=== PATIENT | female | born 1990 ===

== ENCOUNTER 2020-10-05 02:33 | Inpatient (IN) | payer OTHER ==
[2020-10-05] MEDS ORDERED: LIDOCAINE (2%) 20 MG/1 ML VIAL 20 ML MDV INFILTRATI ONE ×2 (03:30→06:37)
[2020-10-05] MEDS ORDERED: LACTATED RINGERS 1,000 ML IV SCH ×2 (03:30→05:45)
[2020-10-05] MEDS ORDERED: MINERAL OIL 30 ML ORAL LIQD PO PRN (03:30)
[2020-10-05] MEDS ORDERED: ePHEDrine SULFATE 50 MG/1 ML INJ IV PRN (03:30)
[2020-10-05] MEDS ORDERED: TERBUTALINE 1 MG/1 ML INJ SUB-Q PRN (03:30)
--- NOTE | 2020-10-05 03:41 | History and Physical Report ---
History of Present Illness Date of examination: 10/05/20 Date of admission: 10/05/2020 Chief complaint: Contractions, leaking of fluid History of present illness: 30 year old presents to L&D with complaint of leaking of fluid from vagina and contractions. Patient states she receives care at [facility] but no records are available. Patient denies complications during the . She states her EDC is 10/10/2020. labs drawn upon arrival and US for EDC/EGA and location of placenta ordered. GBS prophylaxis started (Vancomycin). 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 denies: smoking, alcohol abuse, prescription drug abuse, IV drug use - Obstetrical History Expected Date of Delivery: 10/10/20 Actual Gestation: 39 Week(s) 2 Day(s) : 2 Para: 1 Hx # Term Pregnancies: 1 Number of Pregnancies: 0 Spontaneous Abortions: 0 Induced : 0 Number of Living Children: 1 Medications and Allergies Allergies Allergy/AdvReac Type Severity Reaction Status Date / Time amoxicillin Allergy Swelling Verified 10/05/20 03:40 Penicillins Allergy Swelling Verified 10/05/20 03:40 Home Medications Medication Instructions Recorded Confirmed Last Taken Type No Known Home Medications [No 10/05/20 10/05/20 Unknown History Reported Home Medications] Active Meds: Active Medications Ephedrine Sulfate (Ephedrine Sulfate 50 Mg/1 Ml Inj) 10 mg IV Q2M PRN PRN Reason: Hypotension Fentanyl (Fentanyl 100 Mcg/2 Ml Inj) 100 mcg IV Q2H PRN PRN Reason: Pain,Severe (7-10) LABOR PAIN Lactated Ringer's (Lactated Ringers) 1,000 mls @ 125 mls/hr IV DIRECT HADLEY Oxytocin/Sodium Chloride (Pitocin/Ns 30 Unit/500ml) 30 units in 500 mls @ 40 mls/hr IV TITR HADLEY; Protocol Vancomycin HCl (Vancomycin/Ns 1 Gm/250 Ml) 1 gm in 250 mls @ 167.007 mls/hr IV Q12H HADLEY; Protocol Lidocaine (Lidocaine (2%) 20 Mg/1 Ml Vial 20 Ml Mdv) 20 ml INFILTRATI ONCE ONE Stop: 10/05/20 03:31 Mineral Oil (Mineral Oil 30 Ml Oral Liqd) 30 ml PO QHS PRN PRN Reason: Constipation Terbutaline Sulfate (Terbutaline 1 Mg/1 Ml Inj) 0.25 mg SUB-Q ONCE PRN PRN Reason: Hyperstimulation/Hypertonicity Review of Systems All systems: negative (contractions, leaking of water) - Vital Signs Vital signs: Vital Signs Pulse BP 69 104/66 10/05/20 02:56 10/05/20 02:56 Temp Pulse Resp BP Pulse Ox 79 104/66 98 10/05/20 03:34 10/05/20 02:56 10/05/20 03:34 - Physical Exam Abdomen: Positive: normal appearance, soft. Negative: distention, tenderness, guarding, rigidity Genitourinary (Female): Positive: normal external genitalia, normal perenium. Negative: perineal/vulvar lesions Vagina: Positive: other (clear fluid) Uterus: Positive: enlarged. Negative: tender Anus/Rectum: Positive: normal perianal skin Extremities: Positive: normal. Negative: tenderness, edema - Obstetrical FHR: category 1 Uterine Contraction Monitor Mode: External Cervical Dilatation: 5 Cervical Effacement Percentage: 90 station: -1 Uterine Contraction Pattern: Regular Uterine Contraction Intensity: Moderate Results All other labs normal. Assessment and Plan A: at 39 weeks, 2 days gestation. SROM. Active labor. GBS unknown. No records available. P: Admit. EFM. GBS prophylaxis. labs, US ordered. Request records.
[2020-10-05] MEDS ORDERED: OXYTOCIN DRIP 30 UNITS/500 ML BAG IV SCH (04:00)
[2020-10-05] MEDS ORDERED: VANCOMYCIN/NS 1 GM/250 ML 1 GM/250 ML BAG IV SCH (04:00)
[2020-10-05 04:52] LABS: Hematocrit 33.4 % (30.3-42.9); Hemoglobin 11.5 gm/dl (10.1-14.3); Mean Corpuscular HGB Conc 35 % (30-34); Mean Corpuscular Volume 88 fl (79-97); Red Blood Count 3.82 M/mm3 (3.65-5.03); Red Cell Distribution Width 13.2 % (13.2-15.2)
[2020-10-05 04:55] LABS: Platelet Count 263 K/mm3 (140-440)
[2020-10-05 05:27] LABS: Hepatitis C Virus Antibody Non-Reactive (NonReactive)
[2020-10-05] MEDS ORDERED: METOCLOPRAMIDE 10 MG/2 ML INJ IV ONE (05:38)
[2020-10-05] MEDS ORDERED: FAMOTIDINE 20 MG/2 ML INJ IV ONE (05:38)
[2020-10-05] MEDS ORDERED: BICITRA ORAL LIQD 30ML PO ONE (05:38)
[2020-10-05] MEDS: fentaNYL 100 MCG/2 ML INJ IV PRN ×2 (05:38→07:28)
--- NOTE | 2020-10-05 05:38 | Event Note ---
Date: 10/05/20 US performed: US tech states placenta previa present. Also states EGA is 35 weeks, 4 days by US (EFW 5 lb, [address] Wooten and informed her of ultrasound results. C/S orders put in. Spoke with patient via paraprofessional interpreter and informed her of placenta previa noted on US and MD recommendation for section.
[2020-10-05] MEDS ORDERED: BETAMET ACET/BETAMET NA PH 6 MG/ML INJ 5 ML MDV IM ONE (05:43)
[2020-10-05] MEDS ORDERED: GENTAMICIN/NS 100 MG/100 ML 100 MG/100 ML BAG IV ONE (05:47)
[2020-10-05 05:54] LABS: Alanine Aminotransferase 22 units/L (7-56); Albumin 3.4 g/dL (3.9-5); Blood Urea Nitrogen 14 mg/dL (7-17); Hemolysis Index 295
[2020-10-05 05:56] LABS: BUN/Creatinine Ratio 23
--- NOTE | 2020-10-05 06:02 | Anesthesia Day of Surgery ---
Anesthesia Day of Surgery - Day of Surgery Patient Examined: Yes Patient H&P Reviewed: Yes Patient is NPO: Yes Beta Blockers: No Cardiac Clearance: No Pulmonary Clearance: No Gabe's Test: N/A
[2020-10-05] MEDS ORDERED: dexAMETHasone 20 MG/5 ML VIAL ONE (06:05)
[2020-10-05] MEDS ORDERED: BUPIVACAINE/PF (0.5%) 5 MG/1 ML 30 ML VIAL INFILTRATI ONE (06:05)
[2020-10-05] MEDS ORDERED: ONDANSETRON 4 MG/2 ML INJ ONE (06:05)
[2020-10-05] MEDS ORDERED: KETOROLAC 30 MG/1 ML INJ ONE (06:05)
[2020-10-05] MEDS ORDERED: SODIUM CHLORIDE 0.9% 500 ML 500 ML IV ONE (06:19)
--- NOTE | 2020-10-05 07:37 | Ultrasound Report ---
US OB limited, US transvaginal INDICATION / CLINICAL INFORMATION: EDC/EGA, location of placenta. TECHNIQUE: Transabdominal and Transvaginal. COMPARISON: None available. FINDINGS/IMPRESSION: 5:10 am ultrasound: Single viable intrauterine is visualized with heart tones of 130 bpm. Placenta: Grade 1 low lying posterior placenta. Possibly previa; however it is difficult to determine on the provided image. Positioning: Cephalic BPD: 9.5 cm. HC: 32.2 cm AC: 27 cm FL: 7 cm Ultrasound gestational age is 35 weeks and 4 days 6:40 am ultrasound: Repeat ultrasound was performed at 6:40 am to confirm baby positioning. The mother was in active labo r and the baby's head was presenting through the cervix. The doctor and polyethylene combiner were present at the t duran of the imaging. Signer Name: Mahad Alatorre MD Signed: 10/05/2020 7:32 AM Workstation Name: [id number]
--- NOTE | 2020-10-05 07:37 | Event Note ---
Date: 10/05/20 Transvaginal US was performed and did not confirm placenta previa. Dr. Wooten and Brandon Nicolas CNM present during US exam. Cervix is now 10/100/0. FHR reassuring. No vaginal bleeding. Allowing patient to labor down prior to pushing. Patient is resting in sidelying position and is tolerating labor well.
--- NOTE | 2020-10-05 07:37 | Ultrasound Report ---
US OB limited, US transvaginal INDICATION / CLINICAL INFORMATION: EDC/EGA, location of placenta. TECHNIQUE: Transabdominal and Transvaginal. COMPARISON: None available. FINDINGS/IMPRESSION: 5:10 am ultrasound: Single viable intrauterine is visualized with heart tones of 130 bpm. Placenta: Grade 1 low lying posterior placenta. Possibly previa; however it is difficult to determine on the provided image. Positioning: Cephalic BPD: 9.5 cm. HC: 32.2 cm AC: 27 cm FL: 7 cm Ultrasound gestational age is 35 weeks and 4 days 6:40 am ultrasound: Repeat ultrasound was performed at 6:40 am to confirm baby positioning. The mother was in active labo r and the baby's head was presenting through the cervix. The doctor and director of billing were present at the t duran of the imaging. Signer Name: Mahad Alatorre MD Signed: 10/05/2020 7:32 AM Workstation Name: [id number]
--- NOTE | 2020-10-05 07:50 | Event Note ---
Date: 10/05/20 CNMW Tiny called me stating pt here in labor 5cm dilated with placenta previa; Tiny stated she felt baby's head. I came to bedside and requested cylinder valve repairer to return for confirmation using vag probe. Pt with desire to push and pelvic exam with right lateral cervical rim and complete head felt by me. No placenta previa seen with the second polysomnography technologist, Shonda, who was viewing the rectum and perineal muscles and unable to find the vagina to insert the probe. I assisted her in placing the transvag probe and no previa seen. I later used the u/sound machine on the floor to identify fundal calcified placenta. Pt given IV pain med and allowed to labor downwards. Expect . FHR remains category and pt with ctx every 2-3mins. Pt not pushing effectively therefore will allow to labor down and sign out given to concrete form setter, Dr. Leong.
[2020-10-05] MEDS ORDERED: miSOPROStol 200 MCG TAB PR ONE (08:20)
[2020-10-05] MEDS ORDERED: miSOPROStol 200 MCG TAB ONE (08:24)
[2020-10-05] MEDS ORDERED: MAGNESIUM HYDROXIDE (MOM) ORAL LIQD UDC PO PRN (08:44)
[2020-10-05] MEDS ORDERED: WITCH HAZEL/ GLYCERIN PAD TP PRN (08:44)
[2020-10-05] MEDS ORDERED: LANOLIN/ZINC/DIMETHICONE (LANSINOH) 7 GM TP PRN (08:44)
[2020-10-05] MEDS ORDERED: HYDROcodone/ACETAMINOPHEN 5-325 MG TAB PO PRN (08:44)
--- NOTE | 2020-10-05 08:53 | Procedure Note ---
OB Delivery Note - Delivery Date of Delivery: 10/05/20 Surgeon: JAME SILVA Estimated blood loss: 300cc - Vaginal Delivery presentation: vertex Delivery position: OA Intrapartum events: none Delivery induction: none Delivery monitor: external FHT, external uterine Route of delivery: Delivery placenta: spontaneous Delivery cord: 3 umbilical vessels Episiotomy: none Delivery laceration: none Anesthesia: none Delivery comments: Spontaneous vaginal delivery at 08:18 of liveborn male infant weighing 7 lb. over intact perineum with apgars of 9/9. was atraumatic. Baby placed skin to skin with mom immediately after delivery. Spontaneous cry and respirations. Baby bulb suctioned and dried with warm towels. 3 vessel cord double clamped and cut. Cord blood obtained. Spontaneous delivery of intact placenta and membranes at 08:22. EBL 300 cc. Pitocin to IV fluids after delivery of placenta. Cytotec 800 mcg given rectally due to uterine atony. Fundus firmed with massage. Placenta and membranes delivered and appear intact. No lacerations noted. Vaginal sweep negative. Sponge count and instrument count correct. Mother and baby stable.
--- NOTE | 2020-10-05 09:30 | Ultrasound Report ---
ULTRASOUND OBSTETRIC LIMITED INDICATION / CLINICAL INFORMATION: placental location. Clinical Gestational Age (GA) in weeks, days: TECHNIQUE: Transabdominal. COMPARISON: 10/05/2020 at 6:40 AM FINDINGS: Single viable intrauterine is visualized with heart tones measuring 150 bpm. The moth er was in active labor at the time of examination. The cervical os is unable to be visualized. The placenta is posterior and fundal in location. Rural Health Consultant was present at the time of imaging. Signer Name: Jayson Orantes MD Signed: 10/05/2020 9:26 AM Workstation Name: [id number]
[2020-10-05] MEDS: DOCUSATE SODIUM 100 MG CAP PO SCH ×2 (11:41→22:20)
[2020-10-05] MEDS: IBUPROFEN 600 MG TAB PO SCH ×2 (11:41→15:00)
[2020-10-05] MEDS: FERROUS SULFATE 325 MG TAB PO SCH ×2 (11:41→22:20)
[2020-10-06] MEDS: IBUPROFEN 600 MG TAB PO SCH ×5 (04:00→21:20)
[2020-10-06] MEDS: FERROUS SULFATE 325 MG TAB PO SCH ×2 (10:05→21:20)
[2020-10-06] MEDS: DOCUSATE SODIUM 100 MG CAP PO SCH ×2 (10:05→21:19)
--- NOTE | 2020-10-06 11:13 | Progress Note ---
Assessment and Plan A: day 1 S/P . P: Await H/H results (drawn earlier this morning). Plan to discharge patient home later this afternoon if H/H is stable. Discussed with patient discharge instructions and warning signs. Advised patient to continue taking her vitamins at home. Advised patient to avoid intercourse, lifting, h [place], driving. Advised patient to follow up at [facility] in 4-6 weeks. Patient voiced understanding of all instructions. Subjective - Subjective Date of service: 10/06/20 Principal diagnosis: day 1 S/P Patient reports: appetite normal, voiding normally, pain well controlled, flatus, ambulating normally, no dizzy ambulation, no nauseated : doing well Objective - Vital Signs Latest vital signs: Vital Signs Temp Pulse Resp BP BP Pulse Ox 10/06/20 08:38 98.1 F 10/06/20 08:12 57 L 97/44 99 10/06/20 01:08 97 F L 77 18 102/66 10/05/20 19:57 98.0 F 74 18 93/53 98 10/05/20 17:00 98.8 F 72 17 96/56 96 10/05/20 13:00 97.9 F 73 18 98/49 96 10/05/20 10:20 98.1 F 67 19 101/48 97 Intake and Output 10/05/20 10/06/20 10/06/20 22:59 07:59 15:59 Intake Total Output Total Balance Intake: Intake, Free Water Output: Urine Void Other: Total, Output Amount # Voids Void - Exam Cardiovascular: Present: Regular rate, No murmurs Lungs: Present: Clear to auscultation Abdomen: Present: normal appearance, soft. Absent: distention, tenderness, guarding, rigidity Uterus: Present: normal, firm, fundal height below umbilicus. Absent: bogginess, tenderness Extremities: Present: normal. Absent: tenderness, edema
[2020-10-06 12:03] LABS: Hematocrit 32.7 % (30.3-42.9); Hemoglobin 11.4 gm/dl (10.1-14.3)
--- NOTE | 2020-10-06 13:03 | Discharge Summary ---
Providers - Providers Date of Admission: 10/05/20 03:30 Date of discharge: 10/06/20 Attending physician: SHAYE TOBIN Primary care physician: SHAYE TOBIN Hospitalization Reason for admission: active labor Delivery: Episiotomy: none Laceration: none Other procedures: none complications: none Discharge diagnosis: IUP at term delivered [place] baby: male Pertinent studies: Labs Hospital course: Stable hospital course Condition at discharge: Good Disposition: DC-01 TO HOME OR SELFCARE - Discharge Diagnoses (1) Term delivered Status: Acute Plan - Provider Discharge Summary Activity: routine, no sex for 6 weeks, no heavy lifting 4 weeks, no strenuous exercise Diet: routine Instructions: routine Additional instructions: Call your doctor immediately for: * Fever > 100.5 * Heavy vaginal bleeding ( >1 pad per hour) * Severe persistent headache * Shortness of breath * Reddened, hot, painful area to leg or breast - Follow up plan Follow up: SHAYE TOBIN MD [Primary Care Provider] - 6 Weeks Forms: [facility] Discharge Summary
[2020-10-07] MEDS: IBUPROFEN 600 MG TAB PO SCH (05:28)
[2020-10-07 16:29] VITALS: BP 105/82
== END 2020-10-07 16:29 | disposition home or self-care (01) | DRG 807 ==
LOC: TRG 02:33 → APU 02:47 → TRG 03:30 → LD 03:30 → OB 10:23 → UNDODISIN 11:19
PROVIDERS: ADMIT Obstetrics & Gynecology; ATTEND Obstetrics & Gynecology
PROC: 10E0XZZ Delivery of Products of Conception, External Approach (ICD-10-PCS; principal; 2020-10-05)
DX: O80 Encounter for full-term uncomplicated delivery (principal); Z37.0 Single live birth; Z3A.39 39 weeks gestation of pregnancy; Z20.822 Contact with and (suspected) exposure to COVID-19
CPT/HCPCS: 36415; 59025; 76815; 76830; 80053; 85014; 85018; 85027; 86592; 86706; 86762; 86803; 86850; 86900; 86901; 86920; 87806; G0378; J1100; J1885; J2405; J2765; J3010; J3370; J3490; J7120; U0003

== ENCOUNTER 2022-02-16 17:53 | Inpatient (IN) | payer MEDICAID ==
--- NOTE | 2022-02-16 19:39 | History and Physical Report ---
History of Present Illness Date of examination: 02/16/22 Date of admission: 02/16/2022 Chief complaint: labor History of present illness: 31yo @40.2weeks gestation, NI 02/14/22 from [facility]. She presents to Labor and delivery for labor. She had minimal care due to late entry. GBS neg. Her previous deliveries were full term and vaginal Past History Past Medical History: no pertinent history Past Surgical History: no surgical history Social history: no significant social history - Obstetrical History Expected Date of Delivery: 02/14/22 Actual Gestation: 40 Week(s) 2 Day(s) : 3 Para: 2 Hx # Term Pregnancies: 2 Number of Pregnancies: 0 Spontaneous Abortions: 0 Induced : 0 Number of Living Children: 2 #1 Infant Gender: Male year: Birthweight: 8 lb Method of Delivery: Vaginal Gestational age at delivery: 40 Complications: none #2 Gender: Male year: Birthweight: 8 lb 2.08 oz Method of Delivery: Vaginal Gestational age at delivery: 40 Complications: none Medications and Allergies Allergies Allergy/AdvReac Type Severity Reaction Status Date / Time amoxicillin Allergy Swelling Verified 10/05/20 03:40 Penicillins Allergy Swelling Verified 10/05/20 03:40 Home Medications Medication Instructions Recorded Confirmed Last Taken Type No Known Home Medications [No 10/05/20 10/05/20 Unknown History Reported Home Medications] Review of Systems All systems: negative - Vital Signs Vital signs: Vital Signs Pulse BP 67 113/60 02/16/22 18:29 02/16/22 18:29 Temp Pulse Resp BP Pulse Ox 98.9 F 67 16 113/60 02/16/22 18:47 02/16/22 18:47 02/16/22 18:47 02/16/22 18:47 - Physical Exam Breasts: Positive: deferred Cardiovascular: Regular rate Lungs: Positive: Clear to auscultation Abdomen: Positive: normal appearance Genitourinary (Female): Positive: normal external genitalia Vulva: both: normal Vagina: Positive: normal moisture Uterus: Positive: enlarged (gravid) Extremities: Positive: normal Deep Tendon Reflex Grade: Normal +2 - Obstetrical FHR: category 1 Cervical Dilatation: 6 (by rn) Cervical Effacement Percentage: 80 station: -2 Uterine Contraction Pattern: Irregular Uterine Contraction Intensity: Moderate Results All other labs normal. Assessment and Plan A: late entry to care 40.2 wks gest ni 02/14/22 GBS neg P: EFM/TOCO monitoring Augmentation of labor with AROM and pitocin anticipate delivery
[2022-02-16] MEDS ORDERED: LOPERAMIDE 2 MG CAP PO PRN (19:44)
[2022-02-16] MEDS ORDERED: MINERAL OIL 30 ML ORAL LIQD PO PRN (19:44)
[2022-02-16] MEDS ORDERED: NALOXONE 0.4 MG/1 ML INJ IV PRN (19:44)
[2022-02-16] MEDS ORDERED: PROMETHAZINE 25 MG TAB PO PRN ×2 (19:44→21:36)
[2022-02-16] MEDS ORDERED: ePHEDrine SULFATE 50 MG/1 ML INJ IV PRN (19:44)
[2022-02-16] MEDS ORDERED: METHYLERGONOVINE MALEATE 0.2 MG/ML VIAL IM PRN (19:44)
[2022-02-16] MEDS ORDERED: CARBOPROST TROMETHAMINE 250 MCG/1 ML INJ IM PRN (19:44)
[2022-02-16] MEDS ORDERED: OXYTOCIN 10 UNIT/1 ML INJ IM PRN (19:44)
[2022-02-16] MEDS ORDERED: miSOPROStol 200 MCG TAB PR PRN (19:44)
[2022-02-16] MEDS ORDERED: ACETAMINOPHEN 325 MG TAB PO PRN ×2 (19:44→21:36)
[2022-02-16] MEDS ORDERED: TERBUTALINE 1 MG/1 ML INJ SUB-Q PRN (19:44)
[2022-02-16] MEDS ORDERED: BUTORPHANOL 2 MG/1 ML INJ IV PRN ×2 (19:44)
[2022-02-16] MEDS ORDERED: ONDANSETRON 4 MG/2 ML INJ IV PRN ×2 (19:44→21:36)
[2022-02-16] MEDS ORDERED: LIDOCAINE (2%) 20 MG/1 ML VIAL 20 ML MDV INFILTRATI ONE (19:44)
[2022-02-16] MEDS ORDERED: LACTATED RINGERS 1,000 ML IV SCH (19:45)
[2022-02-16] MEDS ORDERED: OXYTOCIN DRIP 30 UNITS/500 ML BAG IV SCH ×3 (20:00→22:00)
[2022-02-16 20:56] LABS: Hematocrit 34.3 % (30.3-42.9); Hemoglobin 11.6 gm/dl (10.1-14.3); Mean Corpuscular HGB Conc 34 % (30-34); Mean Corpuscular Volume 91 fl (79-97); Platelet Count 216 K/mm3 (140-440); Red Blood Count 3.76 M/mm3 (3.65-5.03); Red Cell Distribution Width 14.3 % (13.2-15.2)
[2022-02-16] MEDS ORDERED: HYDROCORTISONE 25 MG RECTAL SUPP PR PRN (21:36)
[2022-02-16] MEDS ORDERED: oxyCODONE /ACETAMINOPHEN 5-325MG TAB PO PRN (21:36)
[2022-02-16] MEDS ORDERED: MAGNESIUM HYDROXIDE (MOM) ORAL LIQD UDC PO PRN (21:36)
[2022-02-16] MEDS ORDERED: miSOPROStol 100 MCG TAB PR PRN (21:36)
[2022-02-16] MEDS ORDERED: BENZOCAINE/MENTHOL 20/0.5% TOP SPRAY 56 GM TP PRN (21:36)
[2022-02-16] MEDS ORDERED: PROMETHAZINE 25 MG RECT SUPP PR PRN (21:36)
[2022-02-16] MEDS ORDERED: diphenhydrAMINE 25 MG CAP PO PRN (21:36)
[2022-02-16] MEDS ORDERED: LANOLIN/ZINC/DIMETHICONE (LANSINOH) 7 GM TP PRN ×2 (21:36)
[2022-02-16] MEDS ORDERED: WITCH HAZEL/ GLYCERIN PAD TP PRN (21:36)
--- NOTE | 2022-02-16 21:51 | Procedure Note ---
OB Delivery Note - Delivery Date of Delivery: 02/16/22 (2115) Surgeon: STEPHANIA COOK Snow Plow Operator: WANDA TUCKER Estimated blood loss: <100cc (50ml) - Vaginal Delivery presentation: vertex Delivery position: OA Intrapartum events: none Delivery induction: none Delivery augmentation: pitocin Delivery monitor: external FHT Route of delivery: Delivery placenta: spontaneous Delivery cord: nuchal cord (loose reduced), 3 umbilical vessels Episiotomy: none Delivery laceration: none (skid hayden noted) Anesthesia: none Delivery comments: of viable baby girl @2115 on 02/16/22 over intact perineum. No medication or epidural anesthesia given. was placed on mother's abdomen. Delayed cord clamping x1min. Cord cut and clamped by CNM. Spontaneous delv of placenta, intact at 2122, 3v cord. 8/9, Weight has not been asses at this time.Qbl 50ml. No lacerations, skid hayden noted. FFBU, vitals stable. Both infant and mother doing well. - A at 1 minute: 8 at 5 minutes: 9 Infant Gender: Female (02/16/22 @211)
[2022-02-16] MEDS: IBUPROFEN 600 MG TAB PO SCH (21:55)
[2022-02-16] MEDS ORDERED: SENNOSIDES/DOCUSATE SODIUM 8.6/50 MG TAB PO SCH (22:00)
[2022-02-17] MEDS ORDERED: SODIUM CHLORIDE 0.9% 500 ML 500 ML IV ONE (00:10)
[2022-02-17] MEDS ORDERED: SODIUM CHLORIDE 0.9% 1000 ML 1,000 ML IV SCH (00:15)
[2022-02-17] MEDS: IBUPROFEN 600 MG TAB PO SCH ×4 (05:17→23:14)
--- NOTE | 2022-02-17 08:45 | Progress Note ---
Assessment and Plan A: PPD # 1 - stable P: Plan discharge home tomorrow Discharge instructions given Subjective - Subjective Date of service: 02/17/22 Principal diagnosis: PPD # 1 Patient reports: appetite normal [place]: doing well Objective - Vital Signs Latest vital signs: Vital Signs Temp Pulse Resp BP BP Pulse Ox Pulse Ox 02/17/22 08:05 97.8 F 58 L 18 95/56 98 02/17/22 05:33 56 L 95/50 02/17/22 04:52 97.7 F 61 18 87/49 94 02/17/22 03:16 59 L 91/44 97 02/17/22 03:00 57 L 92/38 96 02/17/22 02:38 98 02/17/22 01:20 97.4 F L 55 L 20 95/87 94 02/16/22 23:53 98.0 F 56 L 16 90/48 97 02/16/22 23:02 54 L 102/58 02/16/22 22:47 66 114/61 02/16/22 22:32 51 L 103/56 103/56 02/16/22 22:17 59 L 109/65 109/65 02/16/22 22:02 55 L 111/65 111/65 02/16/22 21:47 63 106/61 106/61 02/16/22 21:32 98.0 F 65 18 108/57 108/57 02/16/22 19:20 100 02/16/22 18:47 98.9 F 67 16 113/60 02/16/22 18:29 67 113/60 Intake and Output 02/16/22 02/17/22 02/17/22 22:59 06:59 14:59 Intake Total 420 120 Output Total 250 Balance 170 120 Intake: Oral 120 Intake, Free Water 420 Output: Urine 250 Void 250 Other: Total, Intake Amount 120 Total, Output Amount 250 # Voids Void 1 Weight 144 lb Estimated Blood Loss 50 - Exam Breasts: Present: deferred Cardiovascular: Present: Regular rate Lungs: Present: Clear to auscultation Abdomen: Present: soft Vulva: both: normal Uterus: Present: fundal height below umbilicus Deep Tendon Reflex Grade: Normal +2
--- NOTE | 2022-02-17 08:45 | Discharge Summary ---
Providers - Providers Date of Admission: 02/16/22 19:44 Date of discharge: 02/18/22 Attending physician: SHAYE TOBIN Primary care physician: SHAYE TOBIN Hospitalization Reason for admission: active labor Delivery: Laceration: none Other procedures: none complications: none Discharge diagnosis: IUP at term delivered [place] baby: female Condition at discharge: Good Disposition: 01 HOME / SELF CARE / HOMELESS Plan - Provider Discharge Summary Activity: routine, no sex for 6 weeks, no strenuous exercise Diet: routine Instructions: routine Additional instructions: [] Smoking cessation referral if applicable(refer to patient education folder for contact #) [] Refer to [facility]'s [facility] Booklet Call your doctor immediately for: * Fever > 100.5 * Heavy vaginal bleeding ( >1 pad per hour) * Severe persistent headache * Shortness of breath * Reddened, hot, painful area to leg or breast * Drainage or odor from incision. * Keep incision clean and dry at all times and follow doctor's instructions regarding bathing/showering - Follow up plan Follow up: SHAYE TOBIN MD [Primary Care Provider] - 6 Weeks
[2022-02-17] MEDS: DOCUSATE SODIUM 100 MG CAP PO SCH ×2 (10:00→23:14)
[2022-02-17 10:57] LABS: Hematocrit 33.6 % (30.3-42.9); Hemoglobin 11.2 gm/dl (10.1-14.3)
[2022-02-18] MEDS: IBUPROFEN 600 MG TAB PO SCH ×2 (06:11→12:14)
[2022-02-18] MEDS: DOCUSATE SODIUM 100 MG CAP PO SCH (10:12)
[2022-02-18 13:41] VITALS: BP 105/55
== END 2022-02-18 15:40 | disposition home or self-care (01) | DRG 807 ==
LOC: TRG 17:53 → LD 17:57 → TRG 19:44 → OB 23:40
PROVIDERS: ADMIT Obstetrics & Gynecology; ATTEND Obstetrics & Gynecology
PROC: 10E0XZZ Delivery of Products of Conception, External Approach (ICD-10-PCS; principal; 2022-02-16)
DX: O69.81X0 Labor and delivery complicated by cord around neck, without compression, not applicable or unspecified (principal); Z37.0 Single live birth; Z3A.40 40 weeks gestation of pregnancy; Z20.822 Contact with and (suspected) exposure to COVID-19; Z88.0 Allergy status to penicillin; Z88.8 Allergy status to other drugs, medicaments and biological substances
CPT/HCPCS: 36415; 85014; 85018; 85027; 86850; 86900; 86901; G0378; J2590; J7040; J7120; U0003